=== PATIENT | male | born 1975 | race Caucasian/White ===

== ENCOUNTER → 2019-09-11 | Outpatient (CLI) | payer OTHER ==
--- NOTE | 2019-09-11 13:55 | MRI ---
EXAM DESCRIPTION: 1. Lower Extremity,Right (accession [id number]) 2. Lower Extremity,Left (accession [id number]) CLINICAL HISTORY: HEEL PAIN. Bilateral heel pain. More pain in the right heel. COMPARISON: None Available. TECHNIQUE: MRI of the right and left ankles were performed with multiplanar multi sequence imaging, without intravenous contrast. RIGHT ANKLE FINDINGS: Bone and Joint: No focal bony contusion or acute fracture. No significant ankle joint effusion. Cartilage: Chronic appearing 0.7 osteochondral defect along the medial talar dome with thinning of the overlying cartilage. Tendons: Moderate to severe plantar fasciopathy with thickening of the plantar fascial central band up measuring up to 8 mm with partial tears at the enthesial attachment and associated enthesitis (with plantar calcaneus marrow edema). No distal fascial retraction. Mild distal Achilles tendinosis and interstitial degeneration. Minimal short segment split tear of the retromalleolar peroneus brevis. The peroneal tendons are otherwise intact. The posterior tibialis, flexor hallucis longus, and flexor digitorum longus tendons are intact. The extensor tendons are intact. No tenosynovitis. Ligaments: The lateral ankle ligaments including the anterior and posterior talofibular, calcaneal fibular, and and posterior tibiofibular ligaments are intact. Prior high right ankle sprain with thickening and partial tear of the anterior tibiofibular ligament. The medial ankle ligaments including the superficial and deep fibers of the deltoid ligament is intact. The spring ligament is intact. Soft tissues: No solid or cystic mass is seen. LEFT ANKLE FINDINGS: Bone and Joint: No focal bony contusion or acute fracture. No significant ankle joint effusion. Cartilage: No osteochondral defect within the talar dome. No full-thickness cartilage loss. Tendons: Mild plantar fasciopathy with thickening of the central band plantar fascia measuring up to 5 mm without fascial tear and minimal calcaneal enthesitis. Moderate Achilles tendinosis (thickening of the distal Achilles tendon measuring 7 mm) with adjacent mild posterior calcaneus enthesitis. The peroneal tendons are intact. The posterior tibialis, flexor hallucis longus, and flexor digitorum longus tendons are intact. The extensor tendons are intact. No focal tear or tenosynovitis. Ligaments: The lateral ankle ligaments including the anterior and posterior talofibular, calcaneal fibular, and anterior and posterior tibiofibular ligaments are intact. The medial ankle ligaments including the superficial and deep fibers of the deltoid ligament is intact. The spring ligament is intact. Soft tissues: No solid or cystic mass is seen. RIGHT ANKLE IMPRESSION: 1. Moderate to severe plantar fasciitis with partial tear of the plantar fascia and enthesitis. 2. Mild distal Achilles tendinosis.. 3. 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 4. Prior high ankle sprain with chronic partial tear of the anterior tibiofibular ligament. 5. Minimal short segment split tear of the retromalleolar peroneus brevis tendon. LEFT ANKLE IMPRESSION: 1. Moderate distal Achilles tendinosis with mild distal Achilles enthesitis. 2. Mild plantar fasciitis without tear. Electronically signed by: Aguilar Green DO 09/11/2019 1:54 PM CDT
== END ==
LOC: MRI 11:50
PROVIDERS: ATTEND Nurse Practitioner
DX: M72.2 Plantar fascial fibromatosis (principal); M76.61 Achilles tendinitis, right leg; M76.62 Achilles tendinitis, left leg; S93.491A Sprain of other ligament of right ankle, initial encounter; M95.8 Other specified acquired deformities of musculoskeletal system